=== PATIENT | female | born 1955 | race Caucasian/White ===

== ENCOUNTER 2023-10-09 12:39 | Outpatient (CLI) | payer OTHER, SELFPAY ==
--- NOTE | 2023-10-09 12:40 | MR_ITS ---
FINAL REPORT CLINICAL HISTORY: Left lower leg pain swelling post injury COMPARISON: None FINDINGS: Multiplanar MR imaging of the left lower leg was performed without contrast. There is no evidence of fracture, bone bruise or marrow edema. No bony mass is identified. There is extensive edema in the medial head of the gastrocnemius muscle. Deep to the central and medial head of the gastrocnemius there is a 2.4 x 1.4 cm fluid collection, 9.5 cm in craniocaudal dimension, that may represent a seroma or hematoma consistent with recent trauma. This is best seen in image #17 of series #29.2. IMPRESSION: No acute bony abnormality. Extensive edema in the medial head of the gastrocnemius with an adjacent fluid collection measuring 9.5 cm in the craniocaudal dimension, that may represent a seroma or hematoma consistent with recent trauma. Reviewed, Interpreted and Dictated by John Ariza MD Transcribed by Flory Jerome Authenticated and [facility]
--- NOTE | 2023-10-09 12:40 | MR_ITS ---
FINAL REPORT CLINICAL HISTORY: Left anterior knee pain and swelling FINDINGS: Multi planar MR imaging was performed of the left knee. The anterior and posterior cruciate ligaments are intact. The quadriceps and patellar tendons are intact. The medial and lateral menisci are intact without evidence of tear. The medial and lateral collateral ligaments appear intact. The medial and lateral retinacula appear intact. There are small osteochondral lesions along the undersurface of the patella. In the proximal medial head of the gastrocnemius is intramuscular edema, may be related to muscle strain. Findings are well seen on images 24-30 of series 3. No evidence of soft tissue inflammatory reaction. IMPRESSION: Muscle strain at the medial head of the gastrocnemius. Reviewed, Interpreted and Dictated by John Ariza MD Transcribed by Salome Corona Authenticated and [facility]
== END 2023-10-09 23:59 ==
LOC: RAD 12:40
PROVIDERS: PCP Nurse Practitioner Family; Visit Provider Nurse Practitioner Family
DX: M25.462 Effusion, left knee (principal); M25.562 Pain in left knee; M79.89 Other specified soft tissue disorders
CPT/HCPCS: 73718; 73721